=== PATIENT | male | born 1980 | race African-American/Black ===

== ENCOUNTER 2018-01-06 00:20 | Emergency (ER) | payer MEDICAID ==
[~2018-01-06] VITALS: Ht 170.2 cm; Wt 78.0 kg
[2018-01-06] MEDS ORDERED: ALBUTEROL (0.083%) 2.5MG/3ML NEB HHN STA (04:05)
[2018-01-06] MEDS ORDERED: IPRATROPIUM BROMIDE (0.02%) 0.5MG/2.5ML NEB HHN STA (04:05)
[2018-01-06] MEDS ORDERED: PREDNISONE 20MG TABLET PO STA (04:05)
[2018-01-06 04:20] VITALS: BP 130/71
== END 2018-01-06 05:20 | disposition home or self-care (01) ==
LOC: ER 00:20
DX: J45.901 Unspecified asthma with (acute) exacerbation (principal)
CPT/HCPCS: 71045; 94640; 99283; J7512; J7611; Z7610